=== PATIENT | female | born 1975 | race Two or more races ===

== ENCOUNTER 2017-03-20 05:38 | Inpatient (IN) | payer OTHER ==
--- NOTE | 2017-03-19 18:41 | PREOPHP ---
DATE OF ADMISSION: 03/20/2017 DATE OF ADMISSION: 03/20/2017. CHIEF COMPLAINT: Pelvic pain and excessive vaginal bleeding. HISTORY OF PRESENT ILLNESS: This is a 41-year-old female, 3, para 0, with 3 therapeutic abortions whose last menstrual period started 03/07/2017. She has been complaining of increasing pelvic pain and excessive vaginal bleeding. On a pelvic ultrasound multiple fibroids were found. The patient was told that this is the reason for the problems and multiple myomectomy was planned for her. The alternatives to this procedure, the risks involved in it, the benefits from it and the possible complications, like infection, hemorrhage, pelvic organ injury during the procedure and postoperative complications including scar formation and hernia formation were discussed. She was allowed to ask questions and all her questions were answered to her satisfaction. She signed the appropriate surgical informed consent. PAST MEDICAL HISTORY: The patient denies any medical problems, including cardiovascular disease and hypertension. She denies diabetes. Denies renal disease, liver disease, and thyroid disease, or neurological problems. FAMILY HISTORY: Noncontributory. REVIEW OF SYSTEMS: Twelve point review of systems is noncontributory. PHYSICAL EXAMINATION: GENERAL APPEARANCE: Well developed, well nourished. No distress. Alert and oriented times 3. VITAL SIGNS: Height is 5 foot 8 inch, and weight 160 pounds, with a BMI of 24. Temperature to be 98, blood pressure 125/62, pulse is 72 per minute, and respirations are 16. HEENT: Within normal limits. Pupils are PERRLA. NECK: Supple. Thyroid is not palpable. There is no lymphadenopathy. BREASTS: No masses or lumps. LUNGS: Clear to percussion and auscultation. HEART: Revealed normal sinus rhythm, without a murmur. ABDOMEN: Soft with no organomegalies or hernias. PELVIC: Normal external genitalia. Vagina is normal. The cervix is normal. Had a normal Pap smear recently. Bimanual exam, there are multiple fibroids present and there are no adnexal masses. EXTREMITIES: Lower extremities are within normal limits. NEUROLOGIC: Grossly normal. IMPRESSION: Multiple uterine fibroids with excessive vaginal bleeding and pelvic pain. PLAN: The patient is to be admitted for exploratory laparotomy and multiple myomectomy under general anesthesia tomorrow 03/20/2017. Dictated By: Solomon Rodrigez MD /[email or web address]/kenzie /Document#: [id number] CC: Billy Croft MD;*[facility]*
[~2017-03-20] VITALS: Ht 172.7 cm; Wt 72.1 kg
[2017-03-20] VITALS (30 sets, daily range): BP systolic 113–150; BP diastolic 59–89; PULSE 74–96; RESP 17–20; Ht 172.7 cm; Wt 72.1 kg
[2017-03-20] MEDS ORDERED: ACETAMINOPHEN 1000MG/100ML IV 100 ML ONE (06:49)
[2017-03-20] MEDS ORDERED: MIDAZOLAM 1 MG/ML 2 ML INJ ONE (06:49)
[2017-03-20] MEDS ORDERED: PROPOFOL 20 ML ONE (06:49)
[2017-03-20] MEDS ORDERED: LIDOCAINE 100 MG SYRINGE ONE (06:49)
[2017-03-20] MEDS ORDERED: HYDROmorphONE 2 MG/ML SYG ONE (06:49)
[2017-03-20] MEDS ORDERED: ROCURONIUM 50 MG INJ ONE ×2 (06:50→08:23)
[2017-03-20] MEDS ORDERED: CEFAZOLIN 1 GM INJ ONE (06:52)
[2017-03-20] MEDS ORDERED: SODIUM CL BACTERIOSTATIC 30 ML INJ ONE (07:01)
[2017-03-20] MEDS ORDERED: VASOPRESSIN 20 UNITS INJ ONE (07:02)
[2017-03-20] MEDS ORDERED: morphine SULFATE/PF (10 MG/10 ML) INJ ONE (07:33)
[2017-03-20] MEDS ORDERED: FENTAnyl 50 MCG/ML VIAL ONE (07:46)
[2017-03-20] MEDS ORDERED: METOCLOPRAMIDE 10 MG INJ ONE (08:10)
[2017-03-20] MEDS ORDERED: DEXAMETHASONE 4 MG/ML 1 ML INJ ONE (08:10)
[2017-03-20] MEDS ORDERED: ONDANSETRON 4 MG INJ ONE (08:10)
[2017-03-20] MEDS ORDERED: FAMOTIDINE 20 MG INJ ONE (08:10)
[2017-03-20] MEDS ORDERED: SUGAMMADEX SODIUM 200 MG/2 ML VIAL IV ONE (08:56)
[2017-03-20] MEDS ORDERED: THROMBIN 5000 UNIT VIAL ONE (09:07)
[2017-03-20] MEDS ORDERED: HYDROmorphONE (0.2 MG/ML) 10ML SYG IV PRN ×3 (09:30)
[2017-03-20] MEDS ORDERED: METOCLOPRAMIDE 10 MG INJ IV PRN (09:30)
[2017-03-20] MEDS ORDERED: ONDANSETRON 4 MG INJ IV PRN ×3 (09:30→10:30)
[2017-03-20] MEDS ORDERED: MEPERIDINE 25 MG INJ IV PRN (09:30)
[2017-03-20] MEDS ORDERED: DIPHENHYDRAMINE 50 MG INJ IV PRN ×2 (09:30→10:30)
--- NOTE | 2017-03-20 10:10 | OPR ---
Date/Time of Note Date/Time of Note DATE: 03/20/17 TIME: 10:06 Operative Report Preoperative Diagnosis Excessive vag. bleeding due to fibroids. Postoperative Diagnosis Same Operation/Procedure Performed Exploratory laparotomy,Myomectomies. Surgeon: EUGENIA RODRIGUEZ MD Second assist: DONNA KISER Anesthesia Type: general, spinal Estimated Blood Loss: 10 - 50 ml's Transfusion Required: no Specimens Myomas. Grafts/Implants: none Complications: no EUGENIA RODRIGUEZ MD Mar 20, 2017 10:09
[2017-03-20] MEDS ORDERED: ACETAMINOPHEN 325 MG TAB PO PRN (10:30)
[2017-03-20] MEDS ORDERED: morphine 2 MG INJ IV PRN (10:30)
[2017-03-20] MEDS ORDERED: OXYCODONE/ACETAMINOPHEN (5/325) TAB PO PRN (10:30)
[2017-03-20] MEDS ORDERED: HYDROmorphONE 1 MG/ML SYG IV PRN ×2 (10:30)
[2017-03-20] MEDS ORDERED: NALOXONE (0.4 MG/ML) INJ IV PRN (10:30)
--- NOTE | 2017-03-20 11:03 | OPR ---
DATE OF OPERATION: 03/20/2017 PREOPERATIVE DIAGNOSIS: Excessive vaginal bleeding and pelvic pain due to uterine fibroids. POSTOPERATIVE DIAGNOSIS: Excessive vaginal bleeding and pelvic pain due to uterine fibroids. OPERATIVE PROCEDURE: Exploratory laparotomy, myomectomy. SURGEON: Dr. Solomon Rodrigez. ASSOCIATE PROFESSOR OF MUSIC:MD Berta ANESTHESIA: Spinal and general. ESTIMATED BLOOD LOSS: Minimal, less than 50 mL. COMPLICATIONS: None. SPECIMENS: The myomas were sent to pathology. PROCEDURE AND FINDINGS: With the patient under general anesthesia after spinal anesthesia, laid on the table in the dorsal lithotomy position. Her abdomen was prepped with Chloraprep and the vagina and perineum with Betadine. After 3 minutes she was draped in the usual sterile fashion for this procedure. A Humi manipulator was inserted vaginally to mobilize the uterus. The surgeon changed his gloves, and attention was turned to the abdomen of the patient where a small Pfannenstiel incision was done. This was carried through all layers of the abdominal wall with ease. Once in the abdomen, a globally enlarged uterus was found with a large fibroid in the core of the uterus. The uterus was pulled out of the uterine cavity and isolated with clean laps. It was injected with a solution of 20 units of vasopressin in 50 mL of saline, of which 20-25 mL were used. The uterus was bivalved in the midline in a vertical way in order to expose this large fibroid. Bleeding was minimal. The fibroid was dissected away with the scissors from the core of the uterus, all the way to the cervix. There we found the Humi manipulator. At this time the manipulator was deflated and removed vaginally. The surgeons changed gloves again. The fibroid was then completely removed from the uterus. Pictures were taken for documentation. Specimens sent to pathology. The uterine cavity looked normal. There was; however, some signs of adenomyosis of the wall of the uterus. The visible glands were cauterized with Bovie. An incision in the uterus was closed in several layers with separate sutures of 0 Vicryl in a careful way, trying to maintain the anatomy as normal as possible. The tubes were normal. So were the ovaries. Then were no signs of any other pathology in the pelvis. Surgiflo was utilized as closure, closing the myometrium to obtain better hemostasis. The surface of the uterus was then closed with 2-0 Vicryl on a SH needle. The pelvis was thoroughly washed with warm water and suctioned out. There was no active bleeders. The incision of the uterus was closed was Seprafilm to avoid future adhesions. Then the abdomen was closed in layers with the peritoneum with a continuous running stitch of 0 chromic catgut. The fascia was closed with a continuous stitch of 0 Vicryl. Finally, the edges of the skin were brought together with subcuticular 3-0 Monocryl. Sterile pressure dressing was applied. The patient taken to recovery room with vital signs stable. Needle, sponge, and instrument count at the end of the procedure was correct twice. Dictated By: Solomon Rodrigez MD /fidelia/darius /Document#: [id number] ASTON
[2017-03-20] MEDS: LACTATED RINGER'S 1,000 ML IV SCH ×2 (12:42→23:24)
[2017-03-20] MEDS ORDERED: ACETAMINOPHEN 1000MG/100ML IV 100 ML IVPB PRN (14:00)
[2017-03-20] MEDS: CEFAZOLIN 2 GM/50 ML (PMX) 50 ML IVPB SCH ×2 (16:10→22:25)
[2017-03-21] MEDS: OXYCODONE/ACETAMINOPHEN (5/325) TAB PO PRN ×2 (00:47→09:24)
[2017-03-21 02:43] VITALS: BP 117/62; RESP 18
[2017-03-21 05:14] LABS: BASOPHILS % 0.3 % (0.0-2.0); EOSINOPHILS # 0.1 10^3/ul (0.0-0.5); EOSINOPHILS % 1.2 % (0.0-7.0); HEMATOCRIT 30.1 % (37.0-47.0); HEMOGLOBIN 9.4 g/dl (12.0-16.0); LYMPHOCYTES # 1.7 10^3/ul (0.8-2.9); LYMPHOCYTES % 17.8 % (15.0-51.0); MEAN CORPUSCULAR HEMOGLOBIN 24.1 pg (29.0-33.0); MEAN CORPUSCULAR HGB CONC 31.2 g/dl (32.0-37.0); MEAN CORPUSCULAR VOLUME 77.2 fl (82.0-101.0); MEAN PLATELET VOLUME 11.2 fl (7.4-10.4); MONOCYTE # 1.1 10^3/ul (0.3-0.9); MONOCYTES % 11.6 % (0.0-11.0); NEUTROPHIL # 6.4 10^3/ul (1.6-7.5); NEUTROPHILS % 68.8 % (39.0-77.0); PLATELET COUNT 233 10^3/UL (140-415); RED CELL DISTRIBUTION WIDTH 14.8 % (11.5-14.5); WHITE BLOOD COUNT 9.3 10^3/ul (4.8-10.8)
[2017-03-21] MEDS ORDERED: PANTOPRAZOLE 40 MG INJ IV SCH (06:00)
[2017-03-21] MEDS: LACTATED RINGER'S 1,000 ML IV SCH ×2 (06:02→16:02)
[2017-03-21] MEDS: CEFAZOLIN 2 GM/50 ML (PMX) 50 ML IVPB SCH (06:06)
[2017-03-21 07:11] LABS: CALCIUM 8.5 mg/dl (8.4-10.2); CREATININE 0.77 mg/dl (0.44-1.00); POTASSIUM 3.8 mmol/L (3.5-5.1)
[2017-03-21 08:00] VITALS: BP 102/53; RESP 18
--- NOTE | 2017-03-21 08:20 | PN ---
Date/Time of Note Date/Time of Note DATE: 03/21/17 TIME: 08:17 Assessment/Plan VTE Prophylaxis VTE Prophylaxis Intervention: ambulation, anti-embolic stocking Lines/Catheters IV Catheter Type (from Nrsg): Saline Lock Urinary Cath still in place: Yes Assessment/Plan Assessment/Plan Discontinue Brumfield,encourage ambulation. Cont'd Hospitalization Reason: Unable to void,also needs IV meds for pain management. Subjective 24 Hr Interval Summary Free Text/Dictation Still unable to void.Brumfield was reinserted.Good pain control. Exam/Review of Systems Vital Signs Vitals Vital Signs Date Time Temp Pulse Resp B/P Pulse Ox O2 Delivery O2 Flow Rate FiO2 03/21/17 02:43 98.1 91 18 117/62 96 03/20/17 15:20 Room Air 03/20/17 11:52 2.0 Intake and Output 03/20/17 03/20/17 03/21/17 15:00 23:00 07:00 Intake Total 3000 ml 600 ml 1500 ml Output Total 1630 ml 1100 ml Balance 1370 ml 600 ml 400 ml Results Result Diagram: 03/21/17 0447 03/21/17 0447 Results 24 hrs Laboratory Tests Test 03/21/17 04:47 03/21/17 07:25 White Blood Count 9.3 Red Blood Count 3.90 L Hemoglobin 9.4 L Hematocrit 30.1 L Mean Corpuscular Volume 77.2 L Mean Corpuscular Hemoglobin 24.1 L Mean Corpuscular Hemoglobin Concent 31.2 L Red Cell Distribution Width 14.8 H Platelet Count 233 Mean Platelet Volume 11.2 H Neutrophils % 68.8 Lymphocytes % 17.8 Monocytes % 11.6 H Eosinophils % 1.2 Basophils % 0.3 Nucleated Red Blood Cells % 0.0 Neutrophils # 6.4 Lymphocytes # 1.7 Monocytes # 1.1 H Eosinophils # 0.1 Basophils # 0.0 Nucleated Red Blood Cells # 0.0 Sodium Level 144 Potassium Level 3.8 Chloride Level 105 Carbon Dioxide Level 27 Anion Gap 16 Blood Urea Nitrogen 12 Creatinine 0.77 Glucose Level 104 Calcium Level 8.5 Lab Scanned Report LAB Medications Medications Current Medications Lactated Ringer's (Lr) 1,000 ml @ 100 mls/hr Q10H IV Last administered on t 23:24; Admin Dose 100 MLS/HR; Start 03/20/17 at 10:02 Acetaminophen (Tylenol Tab) 650 mg Q4H PRN PO PAIN LEVEL 1-5; Start 03/20/17 at 10:30 Ibuprofen (Motrin) 600 mg Q8H PRN PO PAIN AND OR ELEVATED TEMP; Start 03/20/17 at 10:30 Oxycodone/ Acetaminophen (Percocet (5/ 325)) 1 tab Q4H PRN PO PAIN LEVEL 6-10 Last administered on 03/21/17 00:47; Admin Dose 1 TAB; Start 03/20/17 at 10:30 Morphine Sulfate (morphine) 2 mg Q2H PRN IV BREAKTHROUGH PAIN; Start 03/20/17 at 10:30 Oxycodone/ Acetaminophen (Percocet (5/ 325)) 2 tab Q4H PRN PO PAIN; Start at 10:30 Pantoprazole 40 mg 40 mg DAILY@06 IV Last administered on 03/21/17 06:06; Admin Dose 40 MG; Start 03/21/17 at 06:00 Acetaminophen (Ofirmev 1000mg/ 100ml Iv) 100 ml @ 400 mls/hr PRN PRN IVPB pain Last administered on 03/20/17 16:19; Admin Dose 400 MLS/HR; Start 03/20/17 at 14:00 Hydromorphone HCl (Dilaudid) 0.4 mg Q2H PRN IV PAIN LEVEL 6-10; Start 03/20/17 at 10:30 Diphenhydramine HCl (Benadryl) 25 mg Q4H PRN IV PRURITUS Last administered on 12:54; Admin Dose 25 MG; Start 03/20/17 at 10:30 Ondansetron HCl (Zofran Inj) 4 mg Q6H PRN IV NAUSEA AND/OR VOMITING Last administered on 03/20/17 12:55; Admin Dose 4 MG; Start 03/20/17 at 10:30 Naloxone HCl (Narcan) 0.2 mg Q2M PRN IV FOR RESP RATE 8 OR LESS; Start 03/20/17 at 10:30 EUGENIA RODRIGUEZ MD Mar 21, 2017 08:19
[2017-03-21] MEDS: DOCUSATE SODIUM 100 MG CAP PO SCH ×2 (09:12→21:43)
[2017-03-21 14:00] VITALS: BP 118/70; RESP 19
[2017-03-21] MEDS: IBUPROFEN 600 MG TAB PO PRN (14:37)
[2017-03-21 19:20] VITALS: BP 130/76; RESP 18
[2017-03-22 02:00] VITALS: BP 104/56; RESP 18
[2017-03-22] MEDS: LACTATED RINGER'S 1,000 ML IV SCH ×2 (02:02→12:02)
[2017-03-22] MEDS ORDERED: PANTOPRAZOLE (EC) 40 MG TAB PO SCH (06:00)
--- NOTE | 2017-03-22 08:28 | PD.PPDC ---
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
[2017-03-22 08:32] VITALS: BP 125/58; RESP 18
[2017-03-22] MEDS: DOCUSATE SODIUM 100 MG CAP PO SCH (09:53)
[2017-03-22] MEDS: OXYCODONE/ACETAMINOPHEN (5/325) TAB PO PRN (09:54)
[2017-03-22] MEDS: IBUPROFEN 600 MG TAB PO PRN (13:49)
--- NOTE | 2017-03-24 07:57 | DS ---
DATE OF ADMISSION: 03/20/2017 DATE OF DISCHARGE: 03/22/2017 FINAL DIAGNOSIS: Large intrauterine fibroids with excessive vaginal bleeding and pelvic pain. HOSPITAL COURSE: This is a 41-year-old female, 3, para 0, who was found to have large uterine fibroids with excessive bleeding. She underwent an exploratory laparotomy, with uterine myomectomy under general anesthesia. She has done well postoperatively. She is passing gases with no problem and tolerated p.o. feeding with no problem. The vaginal bleeding has been minimal. Temperatures remain afebrile. There is no sign of infection and the incision is healing well. She is discharged home with written instructions in good condition. She is to pursue with a regular diet. She is to be rested at home and follow up with me in the office in 1 week. She was given a prescription for Percocet to use 1 or 2 tablets every 6 hours p.r.n. pain. Discharged in good condition. Dictated By: Solomon Rodrigez MD /fidelia/umberto /Document#: [id number]
== END 2017-03-22 15:45 | disposition home or self-care (01) | DRG 743 ==
LOC: REC 05:38 → MS1 11:51
PROVIDERS: ADMIT Specialist; ATTEND Specialist
PROC: 0UB90ZZ Excision of Uterus, Open Approach (ICD-10-PCS; principal; 2017-03-20 07:30)
DX: D25.9 Leiomyoma of uterus, unspecified (principal)
CPT/HCPCS: 80048; 85025; 86850; 86900; 86901; 87086; 88304; C9113; J0131; J0690; J1100; J1170; J1200; J2001; J2250; J2274; J2405; J2765; J3010; J7120